=== PATIENT | female | born 1965 | race Two or more races ===

== ENCOUNTER 2020-02-11 23:04 | Emergency (ER) | payer MEDICAID ==
[~2020-02-11] VITALS: Ht 167.6 cm; Wt 81.6 kg
[2020-02-11] MEDS ORDERED: KETOROLAC TROMETH 30 MG/ML 1ML VIAL IV ONE (23:45)
[2020-02-12 02:00] VITALS: BP 142/82
== END 2020-02-12 03:00 | disposition home or self-care (01) ==
LOC: ER 23:04 → EDBD 23:04 → ER 02-12 03:00
DX: T18.128A Food in esophagus causing other injury, initial encounter (principal); X58.XXXA Exposure to other specified factors, initial encounter; Y93.89 Activity, other specified; Y92.89 Other specified places as the place of occurrence of the external cause; Y99.8 Other external cause status
CPT/HCPCS: 70490; 96374; 99284; J1885